=== PATIENT | female | born 1975 ===

== ENCOUNTER 2016-06-15 19:59 | Emergency (ER) | payer OTHER, BC ==
[2016-06-15] MEDS ORDERED: ALBUTEROL/IPRATROPIUM 2.5/0.5 MG 3 ML/EACH DOSE ONE (20:42)
[2016-06-15] MEDS ORDERED: BENZONATATE 100 MG CAPSULE PO ONE (21:15)
[2016-06-15] MEDS ORDERED: SODIUM CL FOR INHALATION 3 ML DOSE ONE (21:19)
== END 2016-06-15 21:42 | disposition home or self-care (01) ==
LOC: ED 19:59
DX: J40 Bronchitis, not specified as acute or chronic (principal); H66.93 Otitis media, unspecified, bilateral; Z85.850 Personal history of malignant neoplasm of thyroid; E89.0 Postprocedural hypothyroidism
CPT/HCPCS: 94640 ×2; 99283 ×2; A9270 ×2